=== PATIENT | female | born 1985 | race Caucasian/White ===

== ENCOUNTER 2021-06-20 13:57 | Emergency (ER) | payer OTHER ==
[~2021-06-20] VITALS: Ht 167.6 cm; Wt 113.4 kg
[2021-06-20] MEDS ORDERED: TENORMIN25 MG PO (14:21)
[2021-06-20] MEDS ORDERED: HYZAAR 50-12.51 EACH PO (14:21)
== END 2021-06-20 17:29 | disposition home or self-care (01) ==
LOC: ER 13:57
DX: B34.9 Viral infection, unspecified (principal); Z20.822 Contact with and (suspected) exposure to COVID-19